=== PATIENT | male | born 1960 | race Two or more races ===

== ENCOUNTER 2024-02-23 16:13 | Emergency (ER) | payer OTHER ==
[~2024-02-23] VITALS: Ht 170.2 cm; Wt 93.4 kg
[2024-02-23] MEDS ORDERED: KETOROLAC TROMETHAMINE 60 MG VIAL IM ONE (18:00)
[2024-02-23] MEDS ORDERED: ORPHENADRINE CITRATE 30 MG/ML AMPUL IM ONE (18:00)
[2024-02-23] MEDS ORDERED: TRAMADOL HCL 50 MG TABLET PO STA (21:05)
== END 2024-02-23 21:31 ==
LOC: ER 16:15
DX: S52.592A Other fractures of lower end of left radius, initial encounter for closed fracture (principal); W11.XXXA Fall on and from ladder, initial encounter; Y93.89 Activity, other specified; Y92.098 Other place in other non-institutional residence as the place of occurrence of the external cause; Y99.8 Other external cause status; Z88.0 Allergy status to penicillin
CPT/HCPCS: 29125; 70450; 72100; 72125; 73090; 73110; 96372; 99284; J1885; J2360

== ENCOUNTER 2024-02-24 11:48 | Outpatient (CLI) | payer OTHER ==
[2024-02-24 12:39] LABS: HEMATOCRIT 44.4 % (39.0-48.0); HEMOGLOBIN 15.5 g/dL (13-16.00); MEAN CELL VOLUME 87.9 fL (80.0-100.00); MEAN CORPUSCULAR HEMOGLOBIN 30.7 pg (27.00-32.0); PLATELET COUNT 249 K/uL (150-450); RED BLOOD COUNT 5.05 M/uL (4.00-6.00); RED CELL DISTRIBUTION WIDTH 13.3 % (11.5-14.5)
[2024-02-24 12:48] LABS: PH,URINE 5.5 (5.0-8.0); URINE APPEARANCE Clear; URINE BILIRRUBIN Negative (NEGATIVE); URINE BLOOD Trace; URINE COLOR Yellow; URINE GLUCOSE Negative (NEGATIVE); URINE KETONE Trace (NEGATIVE); URINE LEUKOCYTE Negative; URINE NITRATE Negative; URINE PROTEIN Trace (NEGATIVE)
[2024-02-24 12:52] LABS: URINE BACTERIA 11.3 uL (0.0-1933); URINE EPITHELIAL CELLS 7.2 uL (0.0-38.8); URINE RBC 7.4 uL (0.0-20.8)
[2024-02-24 12:58] LABS: INR 1.02; PARTIAL THROMBOPLASTIN TIME 26.4 SECONDS (22.0-34.0); PROTHROMBIN TIME 11.1 SECONDS (9.0-11.5)
[2024-02-24 13:02] LABS: URINE CAST 0.76 uL (0.0-1.40)
[2024-02-24 13:30] LABS: COL EPI 116 SECONDS (82-175)
[2024-02-24 14:28] LABS: ALBUMIN 4.1 gm/dL (3.4-5.0); BILIRUBIN TOTAL 1.08 mg/dL (0.3-1.2); CALCIUM 8.9 mg/dL (8.5-10.1); CREATININE SERUM 1.03 mg/dL (0.70-1.30); GFR 72.48; GLOBULINA 3.6 G/DL (2.4-3.5); POTASSIUM 4.19 mEq/L (3.5-5.1); TOTAL PROTEIN 7.7 gm/dL (6.4-8.2)
== END 2024-02-24 11:49 | disposition home or self-care (01) ==
LOC: LAB 11:48
PROVIDERS: ATTEND Orthopaedic Surgery
DX: D64.9 Anemia, unspecified (principal); E88.89 Other specified metabolic disorders; D68.8 Other specified coagulation defects; N39.0 Urinary tract infection, site not specified; I10 Essential (primary) hypertension; Z22.322 Carrier or suspected carrier of Methicillin resistant Staphylococcus aureus

== ENCOUNTER → 2024-02-24 13:25 | Outpatient (CLI) | payer OTHER | END | disposition home or self-care (01) | LOC: RAD 13:25 | PROVIDERS: ATTEND Orthopaedic Surgery | DX: Z76.89 Persons encountering health services in other specified circumstances (principal); S12.601A Unspecified nondisplaced fracture of seventh cervical vertebra, initial encounter for closed fracture ==

== ENCOUNTER 2024-03-04 07:39 | Outpatient (CLI) | payer OTHER | END 2024-03-04 08:00 | disposition home or self-care (01) | LOC: MRI 07:39 | PROVIDERS: ATTEND Orthopaedic Surgery | DX: S12.601A Unspecified nondisplaced fracture of seventh cervical vertebra, initial encounter for closed fracture (principal) | CPT/HCPCS: 72141 ==

== ENCOUNTER → 2024-04-01 | Outpatient (CLI) | payer OTHER | END | disposition home or self-care (01) | LOC: RAD 12:26 | PROVIDERS: ATTEND Orthopaedic Surgery | DX: M54.2 Cervicalgia (principal); S52.572D Other intraarticular fracture of lower end of left radius, subsequent encounter for closed fracture with routine healing ==

== ENCOUNTER 2024-06-09 10:31 | Outpatient (CLI) | payer OTHER | END 2024-06-09 10:37 | disposition home or self-care (01) | LOC: RAD 10:31 | PROVIDERS: ATTEND Orthopaedic Surgery | DX: S52.572D Other intraarticular fracture of lower end of left radius, subsequent encounter for closed fracture with routine healing (principal); X58.XXXD Exposure to other specified factors, subsequent encounter ==

== ENCOUNTER 2024-07-02 10:37 | Outpatient (CLI) | payer OTHER | END 2024-07-02 10:43 | disposition home or self-care (01) | LOC: RAD 10:37 | PROVIDERS: ATTEND Student in an Organized Health Care Education/Training Program | DX: M47.812 Spondylosis without myelopathy or radiculopathy, cervical region (principal); M54.12 Radiculopathy, cervical region ==

== ENCOUNTER 2024-08-03 11:41 | Outpatient (CLI) | payer OTHER | END 2024-08-03 11:45 | disposition home or self-care (01) | LOC: RAD 11:41 | PROVIDERS: ATTEND Orthopaedic Surgery | DX: S52.572D Other intraarticular fracture of lower end of left radius, subsequent encounter for closed fracture with routine healing (principal) ==

== ENCOUNTER 2024-10-16 07:37 | Outpatient (CLI) | payer OTHER ==
[2024-10-16 08:23] LABS: BASO % 0.4 % (0.1-1.2); EOS # 0.09 (0.04-0.54); EOS % 1.3 % (0.7-7.0); HEMATOCRIT 48.1 % (40.1-51.0); HEMOGLOBIN 16.1 g/dL (13.7-17.5); LYMPH # 1.46 (1.18-3.74); LYMPH % 21.9 % (19.3-53.1); MEAN CORPUSCULAR HEMOGLOBIN 29.5 pg (25.6-32.2); MONO # 0.65 (0.24-0.82); MONO % 9.7 % (4.7-12.5); NEUT # 4.43 (1.56-6.13); NEUT % 66.4 % (34.0-71.1); PLATELET COUNT 273 K/uL (163-369); RED BLOOD COUNT 5.45 M/uL (4.63-6.08); RED CELL DISTRIBUTION WIDTH 12.3 % (11.6-14.4)
[2024-10-16 08:52] LABS: INR 0.97; PARTIAL THROMBOPLASTIN TIME 25.4 SECONDS (22.0-34.0); PROTHROMBIN TIME 10.6 SECONDS (9.0-11.5)
[2024-10-16 08:54] LABS: PH,URINE 5.5 (5.0-8.0); URINE APPEARANCE Clear; URINE BILIRRUBIN Negative (NEGATIVE); URINE BLOOD Trace; URINE COLOR Yellow; URINE GLUCOSE Negative (NEGATIVE); URINE KETONE Negative (NEGATIVE); URINE LEUKOCYTE Negative; URINE NITRATE Negative; URINE PROTEIN Negative (NEGATIVE); URINE UROBILINOGEN 0.2 E.U./dl
[2024-10-16 08:59] LABS: URINE RBC 8.1 uL (0.0-20.8); URINE WBC 1.8 uL (0.0-23.2)
[2024-10-16 09:07] LABS: COL EPI 79 SECONDS (82-175)
[2024-10-16 09:08] LABS: URINE BACTERIA 2.4 uL (0.0-1933); URINE CAST 0.14 uL (0.0-1.40); URINE EPITHELIAL CELLS 1.1 uL (0.0-38.8)
[2024-10-16 09:13] LABS: ALBUMIN 3.8 gm/dL (3.4-5.0); BILIRUBIN TOTAL 0.58 mg/dL (0.3-1.2); CREATININE SERUM 1.07 mg/dL (0.70-1.30); GFR 69.36; GLOBULINA 3.3 G/DL (2.4-3.5); POTASSIUM 5.04 mEq/L (3.5-5.1); TOTAL PROTEIN 7.1 gm/dL (6.4-8.2)
== END 2024-10-16 07:38 | disposition home or self-care (01) ==
LOC: RAD 07:37 → LAB 07:37
PROVIDERS: ATTEND Orthopaedic Surgery
DX: D64.9 Anemia, unspecified (principal); E88.9 Metabolic disorder, unspecified; D68.8 Other specified coagulation defects; N39.0 Urinary tract infection, site not specified; Z22.322 Carrier or suspected carrier of Methicillin resistant Staphylococcus aureus; E11.8 Type 2 diabetes mellitus with unspecified complications; Z76.89 Persons encountering health services in other specified circumstances

== ENCOUNTER 2024-10-16 08:10 | Outpatient (CLI) | payer OTHER | END 2024-10-16 08:12 | disposition home or self-care (01) | LOC: RAD 08:10 | PROVIDERS: ATTEND Student in an Organized Health Care Education/Training Program | DX: M54.50 Low back pain, unspecified (principal) ==

== ENCOUNTER 2025-03-09 11:44 | Outpatient (CLI) | payer OTHER | END 2025-03-09 11:49 | disposition home or self-care (01) | LOC: RAD 11:44 | PROVIDERS: ATTEND Orthopaedic Surgery | DX: S52.572S Other intraarticular fracture of lower end of left radius, sequela (principal); T84.84XD Pain due to internal orthopedic prosthetic devices, implants and grafts, subsequent encounter ==